=== PATIENT | male | born 1990 | race African-American/Black ===

== ENCOUNTER 2017-02-08 01:25 | Emergency (ER) | payer OTHER ==
[~2017-02-08] VITALS: Ht 177.8 cm; Wt 59.9 kg
[2017-02-08] MEDS ORDERED: PERCOCET 10/1 TABLET PO (04:51)
[2017-02-08 05:06] VITALS: BP 116/77
== END 2017-02-08 05:07 | disposition home or self-care (01) ==
LOC: EME 01:25
DX: S43.401A Unspecified sprain of right shoulder joint, initial encounter (principal); X58.XXXA Exposure to other specified factors, initial encounter; M25.511 Pain in right shoulder; G89.29 Other chronic pain
CPT/HCPCS: 73030; 99281; 99283

== ENCOUNTER 2017-05-02 17:08 | Emergency (ER) | payer OTHER ==
[~2017-05-02] VITALS: Ht 177.8 cm; Wt 65.6 kg
[~2017-05-02 17:08] MED LIST: PERCOCET 10/1 TABLET PO
[2017-05-02 20:28] VITALS: BP 128/80
== END 2017-05-02 20:30 | disposition home or self-care (01) ==
LOC: EME 17:08
DX: G89.29 Other chronic pain (principal); M25.551 Pain in right hip; M25.571 Pain in right ankle and joints of right foot; M25.561 Pain in right knee; M25.562 Pain in left knee; M25.511 Pain in right shoulder; V89.2XXS Person injured in unspecified motor-vehicle accident, traffic, sequela; Z88.5 Allergy status to narcotic agent
CPT/HCPCS: 73502; 73564; 73610; 99281; 99285

== ENCOUNTER 2017-06-03 04:04 | Emergency (ER) | payer OTHER ==
[~2017-06-03] VITALS: Ht 177.8 cm; Wt 62.5 kg
[2017-06-03 04:25] LABS: APPEARANCE CLEAR ((CLEAR)); BILIRUBIN NEGATIVE; BLOOD NEGATIVE; COLOR YELLOW ((YELLOW)); GLUCOSE (STRIP) NEGATIVE; KETONES NEGATIVE; LEUKOCYTES NEGATIVE; NITRITE NEGATIVE; PROTEIN (STRIP) NEGATIVE; SPECIFIC GRAVITY 1.034 (1.000-1.030); UCUL ADDED? NO; UROBILINOGEN 0.2 MG/DL (0.2-1.0)
[2017-06-03] MEDS ORDERED: PRILOSEC20 MG PO (09:15)
[2017-06-03] MEDS ORDERED: MOTRIN600 MG PO (09:42)
[2017-06-03 09:49] VITALS: BP 110/78
== END 2017-06-03 09:50 | disposition home or self-care (01) ==
LOC: EME 04:04
DX: R10.11 Right upper quadrant pain (principal); G89.29 Other chronic pain; Z88.5 Allergy status to narcotic agent
CPT/HCPCS: 76705; 80053; 81003; 83690; 85027; 99281; 99284

== ENCOUNTER 2017-10-17 08:30 | Emergency (ER) | payer OTHER ==
[~2017-10-17] VITALS: Ht 180.3 cm; Wt 63.1 kg
[~2017-10-17 08:30] MED LIST changes: +MOTRIN600 MG PO; +PRILOSEC20 MG PO
[2017-10-17 10:41] VITALS: BP 113/45
== END 2017-10-17 10:42 | disposition home or self-care (01) ==
LOC: EME 08:30
DX: M25.511 Pain in right shoulder (principal); R51 Headache
CPT/HCPCS: 73030; 99281; 99283